=== PATIENT | female | born 2000 | race Caucasian/White ===

== ENCOUNTER 2022-06-04 07:41 | Emergency (ER) | payer OTHER ==
[~2022-06-04] VITALS: Ht 160 cm; Wt 70.3 kg
[2022-06-04] MEDS ORDERED: ANTICONCEPTIVAS (07:56)
[2022-06-04] MEDS ORDERED: ZITHROMAX500 MG PO (10:16)
== END 2022-06-04 10:26 | disposition home or self-care (01) ==
LOC: ER 07:41
DX: B34.9 Viral infection, unspecified (principal); Z20.822 Contact with and (suspected) exposure to COVID-19